=== PATIENT | male | born 1945 | race Caucasian/White ===

== ENCOUNTER 2019-12-06 19:33 | Emergency (ER) | payer MEDICARE, SELFPAY ==
[2019-12-06 19:37] VITALS: BP 197/113; PULSE 84; RESP 18; TEMP 37.2; O2SAT 98
[2019-12-06 19:44] VITALS: BP 198/108; PULSE 88; RESP 18; O2SAT 98
--- NOTE | 2019-12-06 19:47 | ED_ITS ---
HPI - Wound/Laceration General: Chief Complaint: Wound/Laceration Stated Complaint: swelling in r foot Time Seen by Provider: 12/06/19 19:37 History of Present Illness: HPI narrative: Patient is a 74-year-old male who comes to the ED with erythema, pain and swelling in right foot. Patient denies any past medical history says he very rarely ever goes to a doctor. Patient says he noticed it about a week ago. Denies any injury or trauma to right foot. Patient says today when he took his sock off and one of his family members was present they noticed some bloody purulent drainage and swelling of the fourth digit. There is also open like sore that is on the lateral aspect of the fourth digit. Patient says he feels some pain and tenderness in his foot whenever he puts weight on it. Patient says he does not want any pain meds while here in the ED. Associated symptoms: Denies chills, fever(s), nausea or vomiting Review of Systems Const: Denies: fever(s), chills or fatigue Eyes: Denies: change in vision or eye discomfort ENMT: Denies: throat pain, odynophagia, nasal discharge or nasal congestion Card: Denies: chest pain, palpitations, edema, swelling of feet/ankles, dyspnea on exertion or orthopnea Resp: Denies: dyspnea, productive cough or non-productive cough GI: Denies: abdominal pain, nausea, vomiting, diarrhea, constipation or hematochezia : Denies: flank pain, difficulty urinating, dysuria or hematuria Musc: Denies: neck pain, back pain or extremity swelling Skin/Breast: Reports: erythema (right foot), skin swelling (Swelling of the right foot and fourth digit of right foot.) and new lesions (sore with purulent drainage on fourth digit of right foot.); Denies: rash Neuro: Denies: headache(s), numbness in extremities or weakness in extremities Physical Exam Const: COMMON NORMALS: no acute distress, patient oriented x3 and alert G ENERAL APPEARANCE: cooperative and comfortable HENMT: COMMON NORMALS: normocephalic HEAD & SCALP: normocephalic MOUTH: Normal oral and palatal mucosa present THROAT: posterior oropharynx normal and uvula midline Eye: COMMON NORMALS: Equal, round and reactive pupils present PUPIL: Yes Equal, round and reactive pupils present Neck/C-Spine: COMMON NORMALS: supple GENERAL: Yes normal visual inspection Resp: COMMON NORMALS: normal respiratory effort, No retractions, No use of accessory muscles and clear to auscultation bilaterally AUSCULTATION: clear to auscultation bilaterally Cardio: COMMON NORMALS: regular rate, regular rhythm, S1 normal heart sound present, S2 normal heart sound present, No gallops present (Cardio), No clicks present (Cardio), No murmurs present (Cardio) and Peripheral pulses 2+ throughout RATE: regular rate RHYTHM: regular rhythm HEART SOUNDS: S1 normal heart sound present and S2 normal heart sound present PERIPHERAL PULSES: Peripheral pulses 2+ throughout GI: COMMON NORMALS: Normal to inspection, nondistended, normoactive bowel sounds present, Soft to palpation, non-tender and no masses PALPATION: Yes Soft to palpation : COMMON NORMALS: Yes no CVA tenderness BLADDER/KIDNEY EXAM: Yes no CVA tenderness Back/Pelvis: COMMON NORMALS: no CVA tenderness Extremity: NARRATIVE EXTREMITY EXAM: Patient's right foot has erythema and warmth in it. His fourth digit on the right foot has significant edema and a sore with purulent malodorous drainage from it. Neuro: COMMON NORMALS: patient oriented x3 and moves all extremities SENSORIUM/ORIENTATION: Yes alert Skin: NARRATIVE SKIN EXAM: Patient's right foot has erythema and warmth in it. His fourth digit on the right foot has significant edema and a sore with purulent malodorous drainage from it. GENERAL SKIN EXAM: dry skin Course Vital Signs: Vital signs: Vital Signs Temperature 99.0 F 12/06/19 19:37 Pulse Rate 72 12/06/19 21:07 Respiratory Rate 16 12/06/19 21:07 Blood Pressure 177/92 12/06/19 21:07 Pulse Oximetry 96 12/06/19 21:07 MDM - Wound/Laceration MDM Narrative: Medical decision making narrative: Patient is a 74-year-old male who comes to the ED with right foot pain and swelling. Exam shows a patient in no acute distress or pain. Right foot has some warmth and erythema on the top of the foot and fourth toe has edema, erythema and warmth with small ulcer on side of toe with purulent drainage. White blood cell count 13 and the rest of CBC and CMP was unremarkable. CRP 19.8. Blood cultures obtained. Wound culture collected. X-ray of right foot showed no acute fractures or signs of osteomyelitis. Patient was given IV Rocephin and placed an order with case management for patient to be referred to wound care clinic. Patient discharged with cellulitis of right foot and sent home with a prescription of clindamycin. I told him that case management will contact him in the next several days to set up an appointment with wound care clinic. Follow-up with PCP in 7 to 10 days. Return to ED precautions given. Patient understood and agreed with plan. Lab Data: Attestation: I reviewed the patient's lab results. Labs: Lab Results 12/06/19 12/06/19 Range/Units 20:15 20:15 WBC 13.0 H (4.0-10.0) 10^3/ uL RBC 4.61 (4.1-5.3) 10^6/u L Hgb 14.1 (11.7-16.6) g/dL Hct 42.8 (42.0-52.0) % MCV 92.8 (80-94) fL MCH 30.6 (28.0-34.0) pg MCHC 32.9 (30.0-36.0) g/dL RDW 12.9 (12.1-15.1) % Plt Count 232 (130-400) 10^3/c mm MPV 11.5 H (7.4-10.4) fL Neut % (Auto) 63.7 % Lymph % (Auto) 21.9 % Gray % (Auto) 13.4 % Eos % (Auto) 0.3 % Baso % (Auto) 0.3 % Neut # (Auto) 8.26 H (1.8-7.7) 10^3/u L Lymph # (Auto) 2.8 (0.8-4.8) 10^3/u L Gray # (Auto) 1.7 H (0.2-0.9) 10^3/u L Eos # (Auto) 0.0 (0.0-0.8) 10^3/u L Baso # (Auto) 0.0 (0.0-0.1) 10^3/u L Nucleated RBC % (a uto) 0 % Nucleated RBCs # 0.0 /100WBC Sodium 137 (136-145) mmol/L Potassium 4.4 (3.5-5.1) mmol/L Chloride 101 (98-107) mmol/L Carbon Dioxide 26 (22-29) mmol/L Anion Gap 14.4 (5-19) BUN 12 (8-23) mg/dL Creatinine 1.0 (0.7-1.2) mg/dL GFR Calculation Not Reportable Glucose 301 H (65-115) mg/dL Calculated Osmolal ity 295 (285-295) mOsm/k g Calcium 9.5 (8.5-10.5) mg/dL Total Bilirubin 0.7 (0.15-1.2) mg/dL AST 16 (0-40) U/L ALT 22 (0-41) U/L Alkaline Phosphata se 157 H (40-130) IU/L C-Reactive Protein 19.8 H (0.0-4.9) mg/L Total Protein 7.1 (6.6-8.7) g/dL Albumin 4.2 (3.5-5.2) g/dL Globulin 2.9 (1.3-4.6) g/dL Imaging Data^: Xray Ortho: Attestation: I personally reviewed and interpreted this imaging study as follows: Radiologist's impression: [place] [address] XRay Report Signed Patient: Abel Richardson Unit #: [id number] : 1945 Age/Sex: 74 / M ADM Date: 12/06/19 Loc: ER Room/Bed: Attending Dr: Ordering Provider/Ordering MD: Sergey Ricardo Date of Service: 12/06/19 Procedure(s): XR foot RT min 3V* 65521 Accession Number(s): [id number] Report Number: [id number] PROCEDURE INFORMATION: Exam: XR Right Foot Complete Exam date and time: 12/06/2019 7:47 PM Age: 74 years old Clinical indication: Pain; Swelling, leg or foot; Right; Additional info: 3rd and 4th digit erythema and swelling TECHNIQUE: Imaging protocol: XR Right foot. Views: 3 or more views. COMPARISON: No relevant prior studies available. FINDINGS: Bones/joints: No acute fracture. No dislocation. Normal bone mineralization. No lytic or sclerotic bony lesions. Degenerative changes at the ankle. Soft tissues: Mild soft tissue swelling dorsal to the distal metatarsals and at the 4th toe. No radiopaque foreign body. Vasculature: Atherosclerotic changes in the visualized arteries. XR/XR foot RT min 3V* 01427 IMPRESSION: 1. No acute fracture. Followup imaging recommended in 7-14 days if clinical concern for fracture persists. 2. No evidence for osteomyelitis. MRI without and with contrast may be obtained if there is continuing clinical concern for osteomyelitis. If the patient has any contradiction for MRI, 3 phase bone scan in conjunction with white blood cell scan may be obtained. 3. Mild soft tissue swelling dorsal to the distal metatarsals and at the 4th toe. 4. Incidental/nonacute findings are listed in the report. Dictated By: Nunu Torres MD Signed By: Nunu Torres MD Signed Date/Time: 12/06/192034 DD/ 33 Discharge Plan Discharge Patient Disposition: Home Clinical Impression: Cellulitis Qualifiers: Site of cellulitis: extremity Site of cellulitis of extremity: toe Laterality: right Qualified Code(s): L03.031 - Cellulitis of right toe Condition: Stable Prescriptions: New clindamycin HCl 150 mg capsule 300 mg PO QID 7 Days Qty: 56 RF: 0 Discharge Orders: Discharge Order (Routine); Ordered 12/06/19 Ordered By: Sergey Ricardo Referrals: Christina Latham MD [Primary Care Provider] - Discharge Diet: Regular Discharge Activity: Increase activity as tolerated Patient Instructions: Cellulitis (ED) Activity Restrictions/Additional Instructions: Follow-up with primary care provider in 7 to 10 days. Case management will be calling you in the next several days to set up an appointment with wound care clinic. Take medications as prescribed. Return to the ER or your medical provider if condition worsens. Please read and understand discharge instructions. If any questions, please ask. Discharge Date/Time: 12/06/19 21:08 Coding Level of Care Code ED Supervisor Fishing for Suki Fwd Exam Comprehensive
[2019-12-06 20:22] LABS: Basophils % 0.3 %; Eosinophils % 0.3 %; Hematocrit 42.8 % (42.0-52.0); Hemoglobin 14.1 g/dL (11.7-16.6); Lymphocytes # 2.8 10^3/uL (0.8-4.8); Lymphocytes % 21.9 %; Mean Corpuscular HGB Conc 32.9 g/dL (30.0-36.0); Mean Corpuscular Hemoglobin 30.6 pg (28.0-34.0); Mean Corpuscular Volume 92.8 fL (80-94); Mean Platelet Volume 11.5 fL (7.4-10.4); Monocytes # 1.7 10^3/uL (0.2-0.9); Monocytes % 13.4 %; Neutrophils # 8.26 10^3/uL (1.8-7.7); Neutrophils % 63.7 %; Nucleated Red Blood Cells % 0 %; Platelet Count 232 10^3/cmm (130-400); Red Blood Count 4.61 10^6/uL (4.1-5.3); Red Cell Distribution Width 12.9 % (12.1-15.1)
[2019-12-06] MEDS: cefTRIAXone 2,000 MG in sodium chloride 0.9% (plus) 50 ML 100 MG IV (20:23)
[2019-12-06 20:38] LABS: Alanine Aminotransferase 22 U/L (0-41); Albumin Level 4.2 g/dL (3.5-5.2); Alkaline Phosphatase 157 IU/L (40-130); Anion Gap 14.4 (5-19); Aspartate Amino Transferase 16 U/L (0-40); Blood Urea Nitrogen 12 mg/dL (8-23); Calcium 9.5 mg/dL (8.5-10.5); Carbon Dioxide 26 mmol/L (22-29); Chloride 101 mmol/L (98-107); Globulin 2.9 g/dL (1.3-4.6); Glucose 301 mg/dL (65-115); Osmolality Calculated 295 mOsm/kg (285-295); Potassium 4.4 mmol/L (3.5-5.1); Sodium 137 mmol/L (136-145); Total Bilirubin 0.7 mg/dL (0.15-1.2); Total Protein 7.1 g/dL (6.6-8.7)
[2019-12-06 21:07] VITALS: BP 177/92; PULSE 72; RESP 16; O2SAT 96
[2019-12-07 00:27] LABS: C Reactive Protein 19.8 mg/L (0.0-4.9)
--- NOTE | 2019-12-07 08:49 | DCPLANNER ---
advertising assistant manager had message to schedule a follow up appointment for patient with Wound Care. advertising assistant manager called the Wound Care clinic, spoke with Paola, gave clinic patients information. A follow up appointment was scheduled for , December 10, 2019 at 2:[address] Granados. advertising assistant manager called patient and gave patient the appointment information. Patient stated that he would attend the appointment.
--- NOTE | 2019-12-16 13:59 | DCPLANNER ---
Patient had a follow up appointment scheduled for 12.10.19 at Wound Care - patient did attend appointment.
== END 2019-12-06 21:08 | disposition home or self-care (01) ==
PROVIDERS: Emergency Provider Physician Assistant; PCP Family Medicine
DX: L03.031 Cellulitis of right toe (principal)
CPT/HCPCS: 12345; 73630; 80053; 85025; 86140; 87040; 87070; 87075; 87077; 87205; 96365; 99283; J0696

== ENCOUNTER 2019-12-10 13:57 | Outpatient (CLI) | payer MEDICARE, SELFPAY | END 2019-12-10 13:58 | disposition home or self-care (01) | LOC: WOUND 13:58 | PROVIDERS: PCP Family Medicine; Visit Provider Thoracic Surgery (Cardiothoracic Vascular Surgery) | DX: L97.512 Non-pressure chronic ulcer of other part of right foot with fat layer exposed (principal) | CPT/HCPCS: 11043; 87070; 87077; 87176; 87186; 87205; G0463; L4387 ==

== ENCOUNTER 2019-12-17 08:19 | Outpatient (CLI) | payer MEDICARE, SELFPAY | END 2019-12-17 08:20 | disposition home or self-care (01) | LOC: WOUND 08:20 | PROVIDERS: PCP Family Medicine; Visit Provider Nurse Practitioner Family | DX: E11.621 Type 2 diabetes mellitus with foot ulcer (principal); L97.512 Non-pressure chronic ulcer of other part of right foot with fat layer exposed | CPT/HCPCS: 11042; L3260 ==

== ENCOUNTER 2019-12-24 08:45 | Outpatient (CLI) | payer MEDICARE, SELFPAY | END 2019-12-24 08:46 | disposition home or self-care (01) | LOC: WOUND 08:45 | PROVIDERS: PCP Family Medicine; Visit Provider Nurse Practitioner Family | DX: Z09 Encounter for follow-up examination after completed treatment for conditions other than malignant neoplasm (principal) | CPT/HCPCS: 99212 ==

== ENCOUNTER 2020-01-01 12:12 | Outpatient (CLI) | payer MEDICARE, SELFPAY ==
--- NOTE | 2020-01-01 12:20 | USCV_ITS ---
Abel Richardson Age: 74 Gender: M : 1945 Exam Date: 01/01/2020 12:45 Ordering Phys: Todd Granados MD (Andy) ([email or web address]) Technologist: Gris Santiago Exam Location: [facility] – [place] Indication: HISTORY: PROCEDURES: FINDINGS: There is no evidence of bilateral deep vein thrombosis. No evidence of superficial thrombosis in the bilateral saphenous system. No evidence of reflux was noted in the bilateral deep venous system. No venous reflux noted in the bilateral greater saphenous vein. No venous reflux noted in the bilateral small saphenous vein. CONCLUSIONS No evidence of DVT in the above-mentioned identifiable veins. No significant venous reflux were noted either in the deep or superficial veins Dr Levon Wilkinson MD [facility] (Electronically Signed) Final Date: 02 January 2020 18:31 S
== END 2020-01-01 12:13 | disposition home or self-care (01) ==
LOC: RAD 12:17
PROVIDERS: PCP Family Medicine; Visit Provider Thoracic Surgery (Cardiothoracic Vascular Surgery)
DX: M79.604 Pain in right leg (principal); L53.9 Erythematous condition, unspecified; L97.819 Non-pressure chronic ulcer of other part of right lower leg with unspecified severity
CPT/HCPCS: 93971

== ENCOUNTER 2020-01-04 13:12 | Outpatient (CLI) | payer MEDICARE, SELFPAY ==
--- NOTE | 2020-01-04 13:23 | USCV_ITS ---
MarceloAbel mckeon Age: 74 Gender: M : 1945 Exam Date: 01/04/2020 13:19 Ordering Phys: Todd Granados MD (Andy) ([email or web address] [email or web address]) Technologist: Exam Location: [facility] – [place] Indication: NON HEALING ULCER RIGHT LEFT Brachial 154.00 mmHg Brachial 147.00 mmHg Pressure (mmHg) Waveform Pressure (mmHg) Waveform 45.00 Pre-Exercise Toe Pressure 110.00 0.29 Pre-Exercise Toe/Brachial Index 0.71 FINDINGS Markedly diminished resting TBI on the right side Normal resting TBI on the left side Some blunting of the dicrotic notch bilaterally with no significant difference in the PVR waveforms CONCLUSIONS #1. Moderately severe peripheral artery disease possibly involving the distal vessels on the right side, based on the TBI #2. No significant arterial obstruction on the left side Dr Levon Wilkinson MD [facility] (Electronically Signed) Final Date: 04 January 2020 17:43 S
== END 2020-01-04 13:13 | disposition home or self-care (01) ==
LOC: RAD 13:17
PROVIDERS: PCP Family Medicine; Visit Provider Thoracic Surgery (Cardiothoracic Vascular Surgery)
DX: M79.604 Pain in right leg (principal); M79.605 Pain in left leg; L53.9 Erythematous condition, unspecified; I73.9 Peripheral vascular disease, unspecified
CPT/HCPCS: 93923

== ENCOUNTER → 2020-08-05 10:36 | Outpatient (BNVA) | payer MEDICARE, SELFPAY | PROVIDERS: PCP Family Medicine; Visit Provider Surgery | DX: Z01.812 Encounter for preprocedural laboratory examination (principal); Z20.822 Contact with and (suspected) exposure to COVID-19 | CPT/HCPCS: 87635 ==

== ENCOUNTER 2020-08-11 08:11 | Day surgery (SDC) | payer MEDICARE, SELFPAY ==
[2020-08-08 12:05] VITALS: BMI 26.9
--- NOTE | 2020-08-11 08:25 | ANES.PREANE2 ---
Pre-Anesthetic Assessment Pre-Anesthetic Assessment: Height/Weight: Height 1.78 m Weight 85.275 kg Preop Diagnosis: screening Proposed Procedure: Operation Date: 08/11/20 09:30 Proposed Procedures p Colonoscopy 03283 z12.11(Not Applicable) - Danish Roman MD Familial anesthetic complications: None Last intake: > 8 hrs Social: Social History: Tobacco and No alcohol Comment: chews tobacco Exam: Pre-Anes Outpt Exam: alert, oriented x 3, clear to auscultation bilaterally and regular rate & rhythm Airway: Cervical ROM: WNL MP: 3 Dentition: False Metabolic: Metabolic: DM Anesthetic Plan: ASA status: 2 Anesthesia: MAC Risk of > 500 ml blood loss (7ml/kg in children): No PFSH Anesthesia PFSH: Family History Father CAD (coronary artery disease) Mother Cancer Grandfather Diabetes Grandmother Hypertension Social History Smoking and tobacco status: current every day smoker smokeless tobacco Alcohol intake: never Data Anesthesia Cardiac Studies: No Data to Display
[2020-08-11 08:58] VITALS: BP 156/86; PULSE 66; RESP 16; TEMP 36.5; O2SAT 99
[2020-08-11] MEDS: sodium chloride 0.9% 1,000 ML 30 ML IV (09:10)
[2020-08-11 09:25] LABS: Glucose Point of Care 114 mg/dL (70-110)
--- NOTE | 2020-08-11 10:02 | P.HP_ITS ---
Same Day Surgery H&P Indication for Procedure/HPI DATE OF PROCEDURE: August 11, 2020 CHIEF COMPLAINT/INDICATIONFOR SURGICAL PROCEDURE: screening colonoscopy PREOP DIAGNOSIS: screening colonoscopy PLANNED PROCEDRUE: Operation Date: 08/11/20 09:30 Proposed Procedures p Colonoscopy 63870 z12.11(Not Applicable) - Danish Roman MD Medications/Allergies* Home Medications Medication Instructions Recorded Confirmed Type metformin 500 mg tablet 500 mg PO BID 01/29/20 08/11/20 History aspirin 81 mg tablet,delayed 81 mg PO DAILY 06/24/20 08/11/20 History release Allergies/Adverse Reactions Allergy/AdvReac Type Severity Reaction Status Date / Time No Known Allergies Allergy Verified 08/08/20 12:04 Current Medications: Generic Name Dose Route Start Last Admin Trade Name Freq PRN Reason Stop Dose Admin Sodium Chloride 1,000 mls @ 30 mls/hr 08/11/20 08:45 08/11/20 09:10 Sodium Chloride 0.9% IV 08/12/20 08:44 30 mls/hr .Q24H ANTHONY Administration Pertinent History/Comorbid Conditions* Family History (Updated 01/29/20 @ 10:25 by Eveline Thompson LPN) Diabetes Grandfather CAD (coronary artery disease) Father Cancer Mother Hypertension Grandmother Social History Smoking and tobacco status: current every day smoker smokeless tobacco Alcohol intake: never Pertinent Exam Findings alert, oriented x 3 and operative site marked Recommendations Surgery/Procedure today Coding Level of Care Code Acute Pin Sorter And Bagger for Suki Murillo
[2020-08-11 10:30] VITALS: BP 102/67; PULSE 62; RESP 18; TEMP 36.1; O2SAT 100
[2020-08-11 10:50] VITALS: BP 137/75; PULSE 59; RESP 18; O2SAT 96
--- NOTE | 2020-08-11 14:45 | ANE.PACU2 ---
Inpatient post-anesthesia follow up: Airway intact: Yes Vital signs: Temperature 97 F Pulse Rate 59 Respiratory Rate 18 Blood Pressure 137/75 Pulse Oximetry 96 Oxygen Delivery Me thod Room Air Oxygen Flow Rate 3 Fraction of Inspir ed Oxygen Hydration adequate: Yes Nausea and vomiting: No Pain level: 2 Mental status: Baseline
== END 2020-08-11 10:58 | disposition home or self-care (01) ==
PROVIDERS: PCP Family Medicine; Visit Provider Surgery
PROC: 0DJD8ZZ Inspection of Lower Intestinal Tract, Via Natural or Artificial Opening Endoscopic (ICD-10-PCS; CPT 45378; principal; 2020-08-11 09:30)
DX: Z12.11 Encounter for screening for malignant neoplasm of colon (principal); D12.2 Benign neoplasm of ascending colon; D12.4 Benign neoplasm of descending colon; K57.30 Diverticulosis of large intestine without perforation or abscess without bleeding; K64.8 Other hemorrhoids; E11.9 Type 2 diabetes mellitus without complications; Z79.84 Long term (current) use of oral hypoglycemic drugs; Z79.82 Long term (current) use of aspirin; F17.290 Nicotine dependence, other tobacco product, uncomplicated
CPT/HCPCS: 36416; 45380; 82962; 88305; 96360; J2704; J7030

== ENCOUNTER 2024-02-17 16:03 | Emergency (ER) | payer MEDICARE, OTHER, SELFPAY ==
[2024-02-17] VITALS (9 sets, daily range): BP systolic 133–228; BP diastolic 77–126; PULSE 76–95; RESP 16–18; TEMP 36.7; O2SAT 93–98; BMI 25.9
--- NOTE | 2024-02-17 16:40 | CTR_ITS ---
PROCEDURE INFORMATION: Exam: CT Abdomen And Pelvis Without Contrast Exam date and time: 02/17/2024 5:12 PM Age: 79 years old Clinical indication: Abdominal pain; Flank; Right lower quadrant (rlq); Additional info: Flank pain TECHNIQUE: Imaging protocol: Computed tomography of the abdomen and pelvis without contrast. Radiation optimization: All CT scans at this facility use at least one of these dose optimization techniques: automated exposure control; mA and/or kV adjustment per patient size (includes targeted exams where dose is matched to clinical indication); or iterative reconstruction. COMPARISON: No relevant prior studies available. RADIATION DOSE METRICS: Total DLP (mGy-cm): 691.94 FINDINGS: Lungs: Lung bases are clear. No pleural effusion. Diaphragm: A hiatal hernia is noted in the lower mediastinum. Liver: Normal. No mass. Gallbladder and biliary ducts: Multiple gallstones are noted in the gallbladder but the gallbladder does not appear inflamed and demonstrates normal wall thickness. Pancreas: Normal. No ductal dilation. Spleen: Normal. No splenomegaly. Adrenal glands: Normal. No mass. Kidneys and ureters: There are 2 separate 3 mm stones located in the distal aspect of the right ureter. The distal most stone lies within the ureterovesical junction. This causes mild hydronephrosis. There is evidence of extravasated urine in the right perinephric space. There is a large complex cystic mass arising from the lower pole of the left kidney. The mass measures 12.5 cm in AP diameter, 11.6 cm in width, and 10.9 cm in length. The mass contains an irregular soft tissue component superiorly and medially the rest of the mass demonstrates a thin, smooth wall. Two small stones are also noted in the left kidney. Stomach and bowel: Multiple diverticula involve the sigmoid colon. There is no sign of diverticulitis. Appendix: No evidence of appendicitis. Intraperitoneal space: Unremarkable. No free air. No significant fluid collection. Vasculature: Unremarkable. No abdominal aortic aneurysm. Lymph nodes: Unremarkable. No enlarged lymph nodes. Urinary bladder: Unremarkable as visualized. Reproductive: The prostate gland is abnormally enlarged. Bones/joints: Unremarkable. No acute fracture. Soft tissues: See Kidneys and ureters finding. CT/CT kidney stone [id number] IMPRESSION: 1. Two separate 3 mm right ureteral stones with [id number] right-sided hydronephrosis 2. Large complex cystic mass of the left kidney. I am uncertain as to whether this represents a malignancy or hemorrhagic cyst. Further workup with contrasted CT or MRI would be helpful. 3. Hiatal hernia 4. Cholelithiasis 5. Prostate enlargement 6. Sigmoid diverticulosis COMMENTS: Consistent with the [employer]'s Incidental Findings Committee white paper (J Am Yael Radiol 2018): Any incidental renal lesion less than 1 cm or classified as too small to characterize, or any incidental cystic renal lesion characterized as simple-appearing, is likely benign. No follow-up imaging is recommended for these lesions per consensus recommendations based on imaging criteria.
--- NOTE | 2024-02-17 16:47 | W.ED.ABDPA2 ---
HPI - Abdominal Pain General: Chief Complaint: Abdominal Pain Stated Complaint: R. side pain Time Seen by Provider: 02/17/24 16:39 History of Present Illness: 79-year-old male presents emergency room complaining of right flank pain and hematuria for the last 2 days. No fever. No vomiting or diarrhea. He has had a history of kidney stones in the past has been several years since he had 1. No dysuria urgency or frequency. No chest pain or shortness of breath Associated Symptoms: Reports hematuria; Denies chills, dysuria and fever(s) Related Data Home Medications Medication Instructions Recorded Confirmed metformin 500 mg tablet 500 mg PO BID 01/29/20 08/26/20 aspirin 81 mg tablet,delayed 81 mg PO DAILY 06/24/20 08/26/20 release (Adult Aspirin Regimen) Previous Rx's Medication Instructions Recorded hydrocodone 5 mg-acetaminophen 325 1 tab PO Q6H PRN pain #25 tabs 02/17/24 mg tablet promethazine 25 mg tablet 25 mg PO Q6H PRN nausea and 02/17/24 vomiting #20 tabs tamsulosin 0.4 mg capsule 0.4 mg PO DAILY #30 caps 02/17/24 Allergies Allergy/AdvReac Type Severity Reaction Status Date / Time No Known Allergies Allergy Verified 02/17/24 16:36 Review of Systems Const: Denies: fever(s) or chills Card: Denies: chest pain Resp: Denies: dyspnea GI: Denies: abdominal pain : Reports: flank pain and hematuria; Denies: dysuria, urinary frequency or urinary urgency Musc: Denies: neck pain or back pain Skin/Breast: Denies: rash PFSH ED PFSH: Medical History Diabetes mellitus Surgical History Status post colonoscopy (08/11/20) Family History Father CAD (coronary artery disease) Mother Cancer Grandfather Diabetes Grandmother Hypertension Social History Smoking and tobacco/nicotine status: current every day tobacco/nicotine user smokeless tobacco Alcohol intake: never Substance/Drug Use: never Physical Exam Const: GENERAL APPEARANCE: cooperative ORIENTATION/CONSCIOUSNESS: Yes awake, Yes oriented to person, Yes oriented to place and Yes oriented to time HENMT: COMMON NORMALS: normocephalic, atraumatic and hearing grossly normal bilaterally HEAD & SCALP: normocephalic and atraumatic Resp: COMMON NORMALS: normal respiratory effort, No retractions, No use of accessory muscles and clear to auscultation bilaterally AUSCULTATION: clear to auscultation bilaterally Cardio: COMMON NORMALS: regular rate, regular rhythm and No murmurs present (Cardio) RATE: regular rate RHYTHM: regular rhythm GI: COMMON NORMALS: Soft to palpation and No hepatosplenomegaly present AUSCULTATION: Yes normoactive bowel sounds PALPATION: Yes Soft to palpation, No Tenderness to palpation present (GI), No Guarding due to palpation present (GI) and Yes No hepatosplenomegaly present Extremity: COMMON NORMALS: normal to inspection, capillary refill normal, no clubbing, cyanosis or edema, no calf tenderness and no pedal edema Neuro: SENSORIUM/ORIENTATION: Yes oriented to person, Yes oriented to place and Yes oriented to time Skin: COMMON NORMALS: no rashes or lesions noted GENERAL SKIN EXAM: no rashes or lesions noted Course Vital Signs: Vital signs: Vital Signs Temperature 98.1 F 02/17/24 16:32 Pulse Rate 93 02/17/24 20:51 Respiratory Rate 16 02/17/24 20:51 Blood Pressure 133/77 02/17/24 20:51 Pulse Oximetry 93 02/17/24 20:51 Oxygen Delivery Me thod Room Air 02/17/24 20:16 MDM - Abdominal Pain Medical Decision Making Patient has a 3 mm stone send the right ureter. Pain is controlled at this point will discharge home promethazine to use as needed hydrocodone as needed for pain. Referral to urology strain urine. Lab Data 02/17/24 17:07 02/17/24 17:07 Labs/Radiology: Radiology Impressions Abdomen/Pelvis CT 02/17/24 16:40 IMPRESSION: 1. Two separate 3 mm right ureteral stones with [id number] right-sided hydronephrosis 2. Large complex cystic mass of the left kidney. I am uncertain as to whether this represents a malignancy or hemorrhagic cyst. Further workup with contrasted CT or MRI would be helpful. 3. Hiatal hernia 4. Cholelithiasis 5. Prostate enlargement 6. Sigmoid diverticulosis COMMENTS: Consistent with the [employer]'s Incidental Findings Committee white paper (J Am Yael Radiol 2018): Any incidental renal lesion less than 1 cm or classified as too small to characterize, or any incidental cystic renal lesion characterized as simple-appearing, is likely benign. No follow-up imaging is recommended for these lesions per consensus recommendations based on imaging criteria. Laboratory Results WBC 10.93 10^3/uL (3.29-11.43) 02/17/24 17:07 RBC 5.02 10^6/uL (3.85-5.65) 02/17/24 17:07 Hgb 14.80 g/dL (11.27-16.99) 02/17/24 17:07 Hct 45.3 % (37-53) 02/17/24 17:07 MCV 90.2 fl (82-101) 02/17/24 17:07 MCH 29.5 pg (27-33) 02/17/24 17:07 MCHC 32.7 g/dL (30-55) 02/17/24 17:07 RDW 13.8 % (12.1-15.1) 02/17/24 17:07 Plt Count 213 10^3/cmm (157-399) 02/17/24 17:07 MPV 10.1 fL (7.4-10.4) 02/17/24 17:07 Neut % (Auto) 82.3 % 02/17/24 17:07 Lymph % (Auto) 9.0 % 02/17/24 17:07 [place] % (Auto) 7.9 % 02/17/24 17:07 Eos % (Auto) 0.1 % 02/17/24 17:07 Baso % (Auto) 0.2 % 02/17/24 17:07 Neut # (Auto) 9.01 10^3/uL (1.8-7.7) H 02/17/24 17:07 Lymph # (Auto) 1.0 10^3/uL (0.8-4.8) 02/17/24 17:07 [place] # (Auto) 0.9 10^3/uL (0.2-0.9) 02/17/24 17:07 Eos # (Auto) 0.0 10^3/uL (0.0-0.8) 02/17/24 17:07 Baso # (Auto) 0.0 10^3/uL (0.0-0.1) 02/17/24 17:07 Nucleated RBC % (auto) 0 % 02/17/24 17:07 Nucleated RBCs # 0.0 /100WBC 02/17/24 17:07 Sodium 135 mmol/L (136-145) L 02/17/24 17:07 Potassium 4.1 mmol/L (3.5-5.1) 02/17/24 17:07 Chloride 97 mmol/L (98-107) L 02/17/24 17:07 Carbon Dioxide 26 mmol/L (22-29) 02/17/24 17:07 Anion Gap 16.1 (5-19) 02/17/24 17:07 BUN 16 mg/dL (8-23) 02/17/24 17:07 Creatinine 1.4 mg/dL (0.7-1.2) H 02/17/24 17:07 GFR Calculation Not Reportable 02/17/24 17:07 Glucose 171 mg/dL (65-115) H 02/17/24 17:07 Calculated Osmolality 285 mOsm/kg (285-295) 02/17/24 17:07 Calcium 9.8 mg/dL (8.5-10.5) 02/17/24 17:07 Total Bilirubin 0.6 mg/dL (0.15-1.2) 02/17/24 17:07 AST 15 U/L (0-40) 02/17/24 17:07 ALT 11 U/L (0-41) 02/17/24 17:07 Alkaline Phosphatase 80 U/L (40-130) 02/17/24 17:07 Total Protein 8.2 g/dL (6.6-8.7) 02/17/24 17:07 Albumin 4.9 g/dL (3.5-5.2) 02/17/24 17:07 Globulin 3.3 g/dL (1.3-4.6) 02/17/24 17:07 Lipase 15 U/L (13-60) 02/17/24 17:07 Urine Color Yellow (Yellow) 02/17/24 18:23 Urine Appearance Clear (CLEAR) 02/17/24 18:23 Urine pH 7.5 (5-7) 02/17/24 18:23 Ur Specific [place] 1.014 (1.005-1.030) 02/17/24 18:23 Urine Protein 1+ (Negative) A 02/17/24 18:23 Urine Glucose (UA) Trace (Normal) H 02/17/24 18:23 Urine Ketones 1+ (Negative) H 02/17/24 18:23 Urine Blood 3+ (Negative) A 02/17/24 18:23 Urine Nitrate Negative (Negative) 02/17/24 18:23 Urine Bilirubin Negative (Negative) 02/17/24 18:23 Urine Urobilinogen 1.0 mg/dL (Negative) 02/17/24 18:23 Ur Leukocyte Esterase Negative (Negative) 02/17/24 18:23 Urine RBC >100 /hpf (0-2) H 02/17/24 18:23 Urine WBC 0-5 /hpf (0-5) 02/17/24 18:23 Ur Squamous Epith Cells 0-5 /hpf (0-5) 02/17/24 18:23 Amorphous Sediment Not Reportable 02/17/24 18:23 Urine Bacteria None seen /hpf (NONE) 02/17/24 18:23 Hyaline Casts 0-4 /lpf H 02/17/24 18:23 All radiology interpretation(s) finalized by discharge Discharge Plan Discharge Patient Disposition: Home Clinical Impression: Calculus of kidney Condition: Stable Prescriptions: New hydrocodone-acetaminophen 5-325 mg tablet 1 tab PO Q6H PRN (Reason: pain) Qty: 25 0RF promethazine 25 mg tablet 25 mg PO Q6H PRN (Reason: nausea and vomiting) Qty: 20 0RF tamsulosin 0.4 mg capsule 0.4 mg PO DAILY Qty: 30 0RF No Action metformin 500 mg tablet 500 mg PO BID aspirin [Adult Aspirin Regimen] 81 mg tablet,delayed release (DR/EC) 81 mg PO DAILY Discharge Orders: Discharge ED (Routine); Ordered 02/17/24 Ordered By: Chester Puente Referrals: Christina Latham MD [Primary Care Provider] - Discharge Diet: Usual diet Discharge Activity: Resume usual activity Patient Instructions: Kidney Stones (ED), How to Strain Your Urine (ED), Opioid Safety, Pain Management Activity Restrictions/Additional Instructions: Thank you for choosing [facility] for your healthcare needs today. It is very important that you follow up as instructed or that you return to the Emergency Department should you have concerns or if your condition changes or worsens in any way. You were seen for complaints of flank pain. Imaging showed you have two 3 mm kidney stones on the right side. Case management make arrangements for you to follow-up with urology. You should strain your urine to catch the stone if able. If your pain is uncontrolled return to the emergency room. Coding Level of Care Code ED [employer] for Suki Murillo
[2024-02-17] MEDS: morphine 4 mg/mL SDV 1 mL IVP ×2 (16:57→20:12)
[2024-02-17] MEDS: ondansetron 2 mg/ML SDV 2 mL 4 MG IVP (16:58)
[2024-02-17 17:16] LABS: Basophils % 0.2 %; Eosinophils % 0.1 %; Hematocrit 45.3 % (37-53); Mean Corpuscular HGB Conc 32.7 g/dL (30-55); Mean Corpuscular Hemoglobin 29.5 pg (27-33); Mean Corpuscular Volume 90.2 fl (82-101); Mean Platelet Volume 10.1 fL (7.4-10.4); Monocytes # 0.9 10^3/uL (0.2-0.9); Monocytes % 7.9 %; Neutrophils # 9.01 10^3/uL (1.8-7.7); Neutrophils % 82.3 %; Nucleated Red Blood Cells % 0 %; Platelet Count 213 10^3/cmm (157-399); Red Blood Count 5.02 10^6/uL (3.85-5.65); Red Cell Distribution Width 13.8 % (12.1-15.1); White Blood Count 10.93 10^3/uL (3.29-11.43)
[2024-02-17 17:37] LABS: Alanine Aminotransferase 11 U/L (0-41); Albumin Level 4.9 g/dL (3.5-5.2); Alkaline Phosphatase 80 U/L (40-130); Anion Gap 16.1 (5-19); Aspartate Amino Transferase 15 U/L (0-40); Blood Urea Nitrogen 16 mg/dL (8-23); Calcium 9.8 mg/dL (8.5-10.5); Carbon Dioxide 26 mmol/L (22-29); Chloride 97 mmol/L (98-107); Creatinine Clr Calc Pharmacy 49.3295; Globulin 3.3 g/dL (1.3-4.6); Glucose 171 mg/dL (65-115); Lipase 15 U/L (13-60); Osmolality Calculated 285 mOsm/kg (285-295); Potassium 4.1 mmol/L (3.5-5.1); Sodium 135 mmol/L (136-145); Total Bilirubin 0.6 mg/dL (0.15-1.2); Total Protein 8.2 g/dL (6.6-8.7)
[2024-02-17] MEDS: hyDRALAzine 20 mg/mL INJ 1 mL IVP (18:19)
[2024-02-17 18:32] LABS: Bilirubin Urine Negative (Negative); Blood Urine 3+ (Negative); Glucose Urine UA Trace (Normal); Ketones Urine 1+ (Negative); Leukocyte Esterase Urine Negative (Negative); Nitrate Urine Negative (Negative); Protein Urine 1+ (Negative); Specific Gravity, Urine 1.014 (1.005-1.030); Urine Appearance Clear (CLEAR); pH Urine 7.5 (5-7)
[2024-02-17 18:37] LABS: Add Urine Microscopic? YES; Bacteria Urine None Seen /hpf; Hyaline Casts Urine 0-4 /lpf; RBC Urine >100 /hpf (0-2); Squamous Epithelial Cell Urine 0-5 /hpf (0-5); WBC Urine 0-5 /hpf (0-5)
[2024-02-17 18:39] LABS: Urine Color Yellow (Yellow)
[2024-02-17 18:40] LABS: Add Urine Culture? Yes
[2024-02-17] MEDS: metoclopramide 5 mg/mL SDV 2 mL 10 MG IVP (20:21)
--- NOTE | 2024-02-18 07:59 | DCPLANNER ---
referral for urology sent to [facility]
== END 2024-02-17 20:53 | disposition home or self-care (01) ==
PROVIDERS: Emergency Provider Family Medicine; PCP Family Medicine
DX: N20.0 Calculus of kidney (principal); Z79.84 Long term (current) use of oral hypoglycemic drugs; Z79.82 Long term (current) use of aspirin; F17.290 Nicotine dependence, other tobacco product, uncomplicated; E11.9 Type 2 diabetes mellitus without complications
CPT/HCPCS: 36415; 74176; 80053; 81001; 83690; 85025; 87086; 96374; 96375; 96376; 99285; J0360; J2270; J2405; J2765

== ENCOUNTER 2024-03-04 07:35 | Outpatient (CLI) | payer MEDICARE, OTHER, SELFPAY ==
--- NOTE | 2024-03-04 07:39 | CT_ITS ---
WS: [id number] CT ABDOMEN WITH CONTRAST HISTORY: LEFT RENAL CYSTIC MASS Contiguous single phase 5 mm axial imaging performed to the abdomen. Oral contrast has not been provi ded. Coronal and sagittal reformats are submitted. All CT scans at [facility] use at least on e of these dose optimization techniques: automated exposure control; mA and/or kV adjustment per kaycee ent size (includes targeted exams where dose is matched to clinical indication); or iterative reconst ruction. IV CONTRAST: Omnipaque 350; 100 mL IV. Oral contrast: No DLP: 314.01 mGy.cm COMPARISON: Noncontrast CT 02/17/2024 Lower thorax: Lung bases are clear. Heart is normal size. Large hiatal hernia. Liver/biliary system: Normal size with no intrahepatic dilatation. Gallbladder: Normally distended gallbladder with stones layering. Pancreas: Diffuse pancreatic atrophy. Cystic mass in the uncinate process measures 9 x 10 mm. No panc reatic duct dilatation. Spleen: Normal size spleen with granulomata. Adrenal glands: Mild nodularity and thickening of each adrenal gland. Right kidney: Previously described right-sided hydronephrosis and adjacent perinephric stranding is i mproving. There is mild persistent inflammation at the renal pelvis and surrounding the proximal uret er. Small amount of periureteral fluid. No stone is identified in the proximal ureter. There are a fe w tiny cortical hypodensities in the RIGHT renal cortex. Left kidney: Abnormal LEFT kidney. There is a large cystic mass extending from the lower pole the RIG HT kidney. Within this cystic mass is a lobulated soft tissue component which is contiguous with the lower pole of the LEFT kidney. Decreased enhancement within this lobulated soft tissue component whic h projects into the cyst. The entire cystic mass measures 12 x 11 x 11 cm. Solid soft tissue componen t projecting into the mass from the renal cortex measures 2.5 x 3.5 x 3.7 cm. There are additional no nobstructing calcifications in the renal pelvis. There is a parapelvic cyst. Aorta: Moderate atherosclerosis with no aneurysm. Extensive dense calcification involving the SMA and celiac axis with component of stenosis involving the SMA. Lymphadenopathy: None. Free fluid: None. GI tract: As visualized within the abdomen no obstruction. Moderate constipation transverse colon. Th e LEFT renal cystic mass is causing mass effect and displacement of the descending colon due to its l arge size. Abdominal wall: Unremarkable abdominal wall. No hernia. Visualized osseous structures: Unremarkable. CT/CT abdomen w con* [id number] IMPRESSION: 1. Large cystic mass with a lobulated soft tissue component from the lower taya e of the LEFT kidney is identified. Mass in its entirety measures 12 x 11 x 11 cm. The lobulated component from the lower pole of the LEFT kidney projecting i nto the mass measures 2.5 x 3.5 x 3.7 cm. This study was not performed as a andrew al mass CT protocol but cystic renal cell neoplasm needs to be excluded, such a s a papillary renal cell carcinoma. Recommend follow-up with urology. 2. Improved RIGHT hydronephrosis since 02/17/2024. Persistent mild inflammatio n at the RIGHT renal pelvis and proximal ureter. 3. Advanced atherosclerosis aorta and mesenteric arteries. Component of stenos is is likely involving the proximal SMA due to the calcification. 4. Cholelithiasis without acute cholecystitis. 5. Large hiatal hernia. 6. Cystic mass uncinate process of the pancreas measures 9 x 10 mm. No duct di latation. Differential includes IPMN, pseudocyst or small cystic neoplasm. Foll ow-up MRI for pancreatic mass protocol with and without contrast can be obtaine d. If MRI is not possible serial 3-month pancreatic CT with mass protocol can b e obtained.
[2024-03-04] MEDS: iohexol 350 mg/mL 500 mL Btl (per mL) IV (08:04)
== END 2024-03-04 07:36 | disposition home or self-care (01) ==
LOC: RAD 07:36
PROVIDERS: PCP Family Medicine; Visit Provider Family Medicine
DX: N28.89 Other specified disorders of kidney and ureter (principal); N20.0 Calculus of kidney; N28.1 Cyst of kidney, acquired; N13.30 Unspecified hydronephrosis; R93.41 Abnormal radiologic findings on diagnostic imaging of renal pelvis, ureter, or bladder; I70.0 Atherosclerosis of aorta; K80.20 Calculus of gallbladder without cholecystitis without obstruction; K44.9 Diaphragmatic hernia without obstruction or gangrene; K86.2 Cyst of pancreas; K86.89 Other specified diseases of pancreas; D73.9 Disease of spleen, unspecified; R93.89 Abnormal findings on diagnostic imaging of other specified body structures; R93.421 Abnormal radiologic findings on diagnostic imaging of right kidney; R93.422 Abnormal radiologic findings on diagnostic imaging of left kidney; I70.90 Unspecified atherosclerosis; K59.00 Constipation, unspecified
CPT/HCPCS: 74160

== ENCOUNTER 2024-03-19 10:46 | Outpatient (CLI) | payer MEDICARE, OTHER, SELFPAY ==
--- NOTE | 2024-03-19 10:51 | MR_ITS ---
WS: [id number] MRI ABDOMEN WITH AND WITHOUT CONTRAST. COMPARISON: CT 03/04/2024, 02/17/2024 Multiplanar, multisequence imaging is performed with and without contrast. MultiHance 20 mL. History: MRI was recommended to evaluate the cystic mass involving the uncinate process of the pancre as. Patient also has a large LEFT renal mass. Pancreas: Mild diffuse pancreatic atrophy with no pancreatic duct dilatation. Identified is a T2 hype rintense mass in the uncinate process extending exophytically from the uncinate process. Mass measure s 10 x 12 mm. On the postcontrast imaging there is no significant enhancement. The adjacent duct is n ot dilated. No definite connection to the pancreatic duct. No acute pancreatitis or fluid collection. Patient has a known complex cystic mass associated with the lower pole of the LEFT kidney. Mass measu res 12.3 x 10.9 cm and there is lobulated solid soft tissue contiguous with the normal renal parenchy ma measuring 5.6 x 3.0 cm. This lobulated soft tissue component extending into the mass does enhance slightly on the postcontrast imaging. Additional heterogeneity within the mass does not enhance. Normal size liver and spleen. Patient has no cholelithiasis without acute cholecystitis. No biliary d uct dilatation. Mild thickening of the RIGHT adrenal gland. No mass or enhancement. There is no ascit es or adenopathy. Cortical cyst RIGHT kidney lower pole measures 10 mm. MR/MR abdomen wo/w con* [id number] IMPRESSION: 1. Nonenhancing cystic mass in the uncinate process measures 10 x 12 mm. Diffe rential includes small residual pseudocyst, serous cystic neoplasm or IPMN. Sug gest yearly CT or ultrasound evaluation with and without contrast. 2. Previously described large LEFT renal mass is identified also. This mass me asures 12.3 x 10.9 cm with a solid enhancing component contiguous with the LEFT renal parenchyma. As described before urology consult recommended. 3. Cholelithiasis without acute cholecystitis.
[2024-03-19] MEDS: gadobenate dimeglumine 20 mL vial IV (11:46)
== END 2024-03-19 10:47 | disposition home or self-care (01) ==
LOC: RAD 10:50
PROVIDERS: PCP Family Medicine; Visit Provider Family Medicine
DX: K86.2 Cyst of pancreas (principal); K80.20 Calculus of gallbladder without cholecystitis without obstruction; K86.89 Other specified diseases of pancreas; N28.1 Cyst of kidney, acquired; R93.422 Abnormal radiologic findings on diagnostic imaging of left kidney; R93.2 Abnormal findings on diagnostic imaging of liver and biliary tract
CPT/HCPCS: 74183

== ENCOUNTER 2024-11-09 14:38 | Outpatient (CLI) | payer MEDICARE, OTHER, SELFPAY ==
--- NOTE | 2024-11-09 14:42 | MR_ITS ---
WS: [id number] MRI ABDOMEN WITH AND WITHOUT CONTRAST. COMPARISON: CT 03/04/2024, prior MRI 03/19/2024 Multiplanar, multisequence imaging is performed with and without contrast. Sagittal and axial T1 fat sat sequences post-MultiHance 20 cc IV. History: Follow-up cystic mass on pancreas. Since the prior examination patient has undergone a LEFT nephrectomy for the large cystic mass with mural nodule. There is no mass or collection in the LEFT renal bed. RIGHT kidney is normal size. There are a few very small cysts. The largest cyst is exophytic from the lower pole measuring 10 mm and does not enhance. No enhancing masses. No RIGHT renal obstruction. Pancreas: Pancreas is not as well visualized on today's MRI. This is in part due to artifact. Pancreas is atrophied. Nonenhancing cystic mass is reidentified from the uncinate process measuring 12 mm. No increase in size. No new mass. No pancreatic duct or common duct dilatation. Normal size liver. No intrahepatic duct dilatation. Gallbladder is normally distended and contains stones. Normal size spleen. Moderate atherosclerosis aorta. Atherosclerotic plaque within the aorta and the proximal mesenteric arteries. No ascites or adenopathy. Visualized GI tract is negative. No pleural effusions. MR/MR abdomen wo/w con* [id number] IMPRESSION: 1. Nonenhancing cystic mass extending centrally from the uncinate process wayne ures 12 mm. No change since 03/04/2024. Recommend yearly MRI pancreas evaluation with and without contrast. Differential remains IPMN, small cystic neoplasm or less likely pseudocyst. 2. Status post LEFT nephrectomy. 3. Cholelithiasis without acute cholecystitis. 4. Pancreatic atrophy with no pancreatic duct dilatation.
[2024-11-09] MEDS: gadobenate dimeglumine 20 mL vial IV (16:13)
== END 2024-11-09 14:39 | disposition home or self-care (01) ==
LOC: RAD 14:39
PROVIDERS: PCP Family Medicine; Visit Provider Nurse Practitioner Family
DX: R93.3 Abnormal findings on diagnostic imaging of other parts of digestive tract (principal); N28.89 Other specified disorders of kidney and ureter; Q61.02 Congenital multiple renal cysts; Z90.5 Acquired absence of kidney; K80.20 Calculus of gallbladder without cholecystitis without obstruction; K86.89 Other specified diseases of pancreas
CPT/HCPCS: 74183